=== PATIENT | female | born 1970 | race Caucasian/White ===

== ENCOUNTER 2017-11-05 10:51 | Inpatient (IN) | payer OTHER ==
[2017-11-05 11:40] VITALS: BMI 27.3
--- NOTE | 2017-11-05 14:29 | HP ---
COWS - Scale Resting Pulse: 2= [place] 101-120 Sweatin=Flushed/Facial Moisture Restless Observation: 3= Extraneous Movement Pupil Size: 2= Moderately Dilated Bone or Joint Aches: 2= Severe Diffuse Aches Runny Nose/ Eye Tearin= Runny Nose/Eyes GI Upset > 30mins: 3= Vomiting/Diarrhea Tremor Observation: 2= Slight Tremor Visible Yawning Observation: 2= >3x During Session Anxiety or Irritability: 2=Irritable/Anxious Goose Flesh Skin: 0=Smooth Skin COWS Score: 22 CIWA Score - CIWA Score Nausea/Vomitin Muscle Tremors: 3 Anxiety: 3 Agitation: 3 Paroxysmal Sweats: 2 Orientation: 0-Oriented Tacttile Disturbances: 2-Mild Itch/Numbness/Burn Auditory Disturbances: 2-Mild Harshness/Frighten Visual Disturbances: 1-Very Mild Sensitivity Headache: 3-Moderate CIWA-Ar Total Score: 22 Admission ROS BHS - HPI Chief Complaint: I NEED HELP TO STOP USING HEROIN,ALCOHOL,KLONOPIN Allergies/Adverse Reactions: Allergies Allergy/AdvReac Type Severity Reaction Status Date / Time No Known Allergies Allergy Verified 11/05/17 14:33 History of Present Illness: THIS 47 YEARS OLD FEMALE WITH HEROIN,ALCOHOL,KLONOPIN DEPENDENCE,WITHDRAWAL SYMPTOM,SEEKING DETOX,LAST TREATMENT IN 2011 [place] [facility]PAT[facility],FOLLOW BY PMD WEIGHT LOSS ANXIETY,DEPRESSION,INSOMNIA,PTSD LOW BACK PAIN NICOTINE DEPENDENCE LONGEST PERIOD OF SOBRIETY 3 AND A HALF YEARS STATED USE TO BE ON SUBOXONE 8MG/2MGS SL FILM BID BUT HAS NOT BEEN TAKING FOR 3 WEEKS - Ebola screening Have you traveled outside of the country in the last 21 days: No (N) Have you had contact with anyone from an Ebola affected area: No Have you been sick,other than usual withdrawal symptoms: No Do you have a fever: No - Review of Systems Constitutional: Chills, Loss of Appetite, Malaise, Night Sweats, Changes in sleep, Weakness, Unintentional Wgt. Loss EENT: reports: Tearing, Hearing Loss (HEARING LOSS RIGHT DUE TO TRAUMA), Nose Congestion, Other Respiratory: reports: No Symptoms reported, Other (ASTHMA) Cardiac: reports: Palpitations GI: reports: Diarrhea, Nausea, Vomiting, Abdominal cramping : reports: No Symptoms Reported Musculoskeletal: reports: Back Pain, Joint Pain, Muscle Pain, Joint Stiffness Integumentary: reports: Dryness Neuro: reports: Headache, Tremors Endocrine: reports: No Symptoms Reported Hematology: reports: No Symptoms Reported Psychiatric: reports: No Sypmtoms Reported, Judgement Intact, Mood/Affect Appropiate, Orientated x3, Anxious, Depressed Other Systems: Reviewed and Negative Patient History - Patient Medical History Hx Anemia: No Hx Asthma: No Hx Chronic Obstructive Pulmonary Disease (COPD): No Hx Cancer: No Hx Cardiac Disorders: No Hx Congestive Heart Failure: No Hx Hypertension: No Hx Hypercholesterolemia: No Hx Pacemaker: No HX Cerebrovascular Accident: No Hx Seizures: No Hx Dementia: No Hx Diabetes: No Hx Gastrointestinal Disorders: No Hx Liver Disease: No Hx Genitourinary Disorders: No Hx Sexually Transmitted Disorders: No Hx Renal Disease (ESRD): No Hx Thyroid Disease: No Hx Human Immunodeficiency Virus (HIV): No (LAST 2016 NEGATIVE) Hx Hepatitis C: Yes (BEING FOLLOW WITH PMD) Hx Depression: Yes (INSOMNIA,DEPRESSION) Hx Suicide Attempt: No Hx Bipolar Disorder: No Hx Schizophrenia: No Other Medical History: NO SUICIDAL,NO HOMICIDAL,LOW BACK PAIN,DEMINISH HEARING RIGHT - Patient Surgical History Past Surgical History: Yes Hx Orthopedic Surgery: Yes (DRAINAGE OF ABSCESS OF LEFT UPPER ARM IN 2017) - PPD History Previous Implant?: Yes Documented Results: Positive w/o proof PPD to be Administered?: No - Reproductive History Patient is a Female of Child Bearing Age (11 -55 yrs old): Yes Patient : No - Smoking Cessation Smoking history: Current every day smoker Have you smoked in the past 12 months: Yes Aproximately how many cigarettes per day: 10 Hx Chewing Tobacco Use: No Initiated information on smoking cessation: Yes 'Breaking Loose' booklet given: 11/05/17 - Substance & Tx. History Hx Alcohol Use: Yes Hx Substance Use: Yes Substance Use Type: Alcohol, Cocaine, Heroin, Tranquilizers Hx Substance Use Treatment: Yes (IN 2011 ) - Substances Abused ETOH Route: Oral Frequency: 3-6 times per week Amount used: 1 PINT VODKA Age of first use: 14 Date of Last Use: 11/04/17 KLONOPIN Route: Oral Frequency: Daily Amount used: 2MG Age of first use: 38 Date of Last Use: 11/05/17 Heroin Route: Injection Frequency: Daily Amount used: 10BAGS Age of first use: 17 Date of Last Use: 11/05/17 Family Disease History - Family Disease History Family History: Denies Family Disease History: Other: Brother (ALCOHOL) Admission Physical Exam [facility] - Vital Signs Vital Signs: Vital Signs - 24 hr 11/05/17 11:37 Temperature 96.6 F L Pulse Rate 115 H Respiratory 18 Rate Blood Pressure 130/83 - Physical General Appearance: Yes: Moderate Distress, Tremorous, Irritable, Sweating, Anxious HEENTM: Yes: Normal ENT Inspection, JORGE LUIS, Pharynx Normal Respiratory: Yes: Lungs Clear, Normal Breath Sounds, No Respiratory Distress Neck: Yes: Within Normal Limits, Supple, Trachea in good position Breast: Yes: Breast Exam Deferred Cardiology: Yes: Within Normal Limits, Tachycardia Abdominal: Yes: Within Normal Limits, Normal Bowel Sounds, Non Tender, Flat, Soft Genitourinary: Yes: Within Normal Limits Back: Yes: Muscle Spasm Musculoskeletal: Yes: Back pain, Joint Stiffness, Muscle Pain Extremities: Yes: Within Normal Limits, Normal Range of Motion, Tremors Neurological: Yes: management supervisor II-XII NML intact, Alert, Motor Strength 5/5 Integumentary: Yes: Dry, Track [place] Lymphatic: Yes: Within Normal Limits - Diagnostic (1) Opioid dependence with withdrawal Current Visit: Yes Status: Acute (2) Alcohol dependence with uncomplicated withdrawal Current Visit: Yes Status: Acute (3) Weight loss Current Visit: Yes Status: Acute (4) Depression Current Visit: Yes Status: Acute (5) Nicotine dependence Current Visit: Yes Status: Acute (6) Bipolar 1 disorder Current Visit: Yes Status: Acute (7) Hearing loss, right Current Visit: Yes Status: Acute (8) 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
[2017-11-05] MEDS ORDERED: MENTHOL/PHENOL 1 EACH UD MM PRN (15:01)
[2017-11-05] MEDS ORDERED: LOPERAMIDE HCL 2 MG CAPSULE PO PRN (15:01)
[2017-11-05] MEDS ORDERED: MAG HYDROX/AL HYDROX/SIMETH 30 ML UNIT-DOSE CUP PO PRN (15:01)
[2017-11-05] MEDS ORDERED: IBUPROFEN 400 MG TABLET (FP) PO PRN (15:01)
[2017-11-05] MEDS ORDERED: MAGNESIUM HYDROX 2400MG/30ML ORAL SUSPENSION 30 ML CUP PO PRN (15:01)
[2017-11-05] MEDS ORDERED: hydrOXYzine PAMOATE 50 MG CAPSULE (FP) PO PRN (15:01)
[2017-11-05] MEDS ORDERED: guaiFENesin/D-METHORPHAN HB 10 ML UNIT-DOSE CUPS PO PRN (15:01)
[2017-11-05] MEDS ORDERED: NICOTINE POLACRILEX 2 MG GUM BUC PRN (15:01)
[2017-11-05] MEDS ORDERED: ACETAMINOPHEN 325 MG TABLET (FP) PO PRN (15:01)
[2017-11-05] MEDS ORDERED: MAGNESIUM CITRATE 300 ML BOTTLE PO PRN (15:01)
[2017-11-05] MEDS ORDERED: P-EPHED 60MG/TRIPROLIDI 2.5MG TABLET PO PRN (15:01)
[2017-11-05] MEDS ORDERED: ALBUTEROL SO4 18 GM HFA INHALER IH PRN (15:06)
[2017-11-05] MEDS ORDERED: diazePAM 5 MG TABLET PO ONE (16:30)
[2017-11-05] MEDS ORDERED: METHADONE HCL 10 MG TABLET (FOR DETOX USE ONLY) PO ONE ×2 (16:30→23:00)
[2017-11-05] MEDS: NICOTINE 21 MG/24 HOURS TOPICAL PATCH TD SCH (18:03)
[2017-11-05] MEDS ORDERED: CYCLOBENZAPRINE HCL 10 MG TABLET (FP) PO SCH (22:00)
[2017-11-05] MEDS: GABAPENTIN 300 MG CAPSULE (FP) PO SCH (22:34)
[2017-11-05] MEDS: diazePAM 5 MG TABLET PO SCH (22:34)
[2017-11-05] MEDS: THIAMINE HCL 100 MG TABLET (FP) PO SCH (22:34)
[2017-11-05 22:48] LABS: URINE APPEARANCE TURBID; URINE BILIRUBIN NEGATIVE (NEGATIVE); URINE BLOOD NEGATIVE (NEGATIVE); URINE COLOR YELLOW; URINE GLUCOSE (UA) NEGATIVE (NEGATIVE); URINE KETONE NEGATIVE (NEGATIVE); URINE LEUK ESTERASE NEGATIVE (NEGATIVE); URINE NITRITE NEGATIVE (NEGATIVE); URINE UROBILINOGEN 4.0 E.U/dl mg/dL (0.2-1.0)
[2017-11-05 22:52] LABS: URINE PROTEIN 1+ (NEGATIVE)
[2017-11-05 22:56] LABS: EPI CELLS MODERATE /HPF (FEW); URINE BACTERIA MODERATE /hpf (NONE SEEN); URINE MUCUS FEW
[2017-11-05] MEDS: CYCLOBENZAPRINE HCL 10 MG TABLET (FP) PO SCH (23:27)
[2017-11-06] MEDS: diazePAM 5 MG TABLET PO SCH ×3 (06:15→22:17)
[2017-11-06] MEDS: CYCLOBENZAPRINE HCL 10 MG TABLET (FP) PO SCH ×3 (06:15→22:17)
[2017-11-06] MEDS ORDERED: METHADONE HCL 10 MG TABLET (FOR DETOX USE ONLY) PO SCH (10:00)
[2017-11-06 10:12] LABS: HEMATOCRIT 38.9 % (32.4-45.2); MCH 29.4 pg (25.7-33.7); MCHC 33.4 g/dl (32.0-36.0); MEAN PLT VOLUME 9.8 fl (7.5-11.1); PLATELET COUNT 210 K/MM3 (134-434); RBC 4.42 M/mm3 (3.60-5.2); RDW 13.7 % (11.6-15.6); WHITE BLOOD COUNT 5.2 K/mm3 (4.0-10.0)
--- NOTE | 2017-11-06 10:13 | PN ---
[facility] CIWA - CIWA Score Nausea/Vomitin-Mild Nausea/No Vomiting Muscle Tremors: 4-Moderate,w/Arms Extend Anxiety: 4-Mod. Anxious/Guarded Agitation: 4-Moderately Restless Paroxysmal Sweats: 1-Minimal Palms Moist Orientation: 0-Oriented Tacttile Disturbances: 2-Mild Itch/Numbness/Burn Auditory Disturbances: 0-None Visual Disturbances: 0-None Headache: 2-Mild CIWA-Ar Total Score: 18 [facility] COWS - Scale Resting Pulse: 1= [place] 81-100 Sweatin= Chills/Flushing Restless Observation: 3= Extraneous Movement Pupil Size: 1= Pupils >than Normal Bone or Joint Aches: 2= Severe Diffuse Aches Runny Nose/ Eye Tearin= Runny Nose/Eyes GI Upset > 30mins: 2= Nausea/Diarrhea Tremor Observation of Outstretched Hands: 2= Slight Tremor Visible Yawning Observation: 2= >3x During Session Anxiety or Irritability: 2=Irritable/Anxious Goose Flesh Skin: 0=Smooth Skin COWS Score: 18 [facility] Progress Note (SOAP) Subjective: joint aches sweat tremor restlessness irritable headache gi upset Objective: 11/06/17 10:14 Vital Signs Temperature 97.2 F L 11/06/17 06:00 Pulse Rate 83 11/06/17 06:00 Respiratory Rate 18 11/06/17 06:00 Blood Pressure 121/73 11/06/17 06:00 O2 Sat by Pulse Oximetry (%) Laboratory Last Values Urine Color Yellow 11/05/17 22:40 Urine Appearance Turbid 11/05/17 22:40 Urine pH 5.0 (5.0-8.0) 11/05/17 22:40 Ur Specific [place] 1.029 (1.001-1.035) 11/05/17 22:40 Urine Protein 1+ (NEGATIVE) H 11/05/17 22:40 Urine Glucose (UA) Negative (NEGATIVE) 11/05/17 22:40 Urine Ketones Negative (NEGATIVE) 11/05/17 22:40 Urine Blood Negative (NEGATIVE) 11/05/17 22:40 Urine Nitrite Negative (NEGATIVE) 11/05/17 22:40 Urine Bilirubin Negative (NEGATIVE) 11/05/17 22:40 Urine Urobilinogen 4.0 e.u/dl mg/dL (0.2-1.0) H 11/05/17 22:40 Ur Leukocyte Esterase Negative (NEGATIVE) 11/05/17 22:40 Urine WBC (Auto) 42 /hpf (3-5) 11/05/17 22:40 Urine RBC (Auto) 20 /hpf (0-3) 11/05/17 22:40 Ur Epithelial Cells Moderate /HPF (FEW) 11/05/17 22:40 Urine Bacteria Moderate /hpf (NONE SEEN) 11/05/17 22:40 Urine Mucus Few 11/05/17 22:40 lab noted 11/06/17 10:16 repeat ua Assessment: 11/06/17 10:16 withdrawal sx Plan: continue detox
[2017-11-06 10:31] LABS: ALBUMIN 3.1 g/dl (3.4-5.0); ANION GAP 10 (8-16); BLOOD UREA NITROGEN 9 mg/dL (7-18); CALCIUM 8.6 mg/dL (8.5-10.1); CHLORIDE 103 mmol/L (98-107); CO2 27 mmol/L (21-32); GLUCOSE,RANDOM 86 mg/dL (74-106); POTASSIUM 3.4 mmol/L (3.5-5.1); SODIUM 140 mmol/L (136-145)
[2017-11-06 10:36] LABS: ALK PHOS 49 U/L (45-117); BILIRUBIN,TOTAL 0.5 mg/dL (0.2-1.0); CREATININE 0.6 mg/dL (0.55-1.02); SGOT/AST 26 U/L (15-37); SGPT/ALT 31 U/L (12-78)
--- NOTE | 2017-11-06 10:49 | EKG ---
Test Reason : Blood Pressure : / mmHG Vent. Rate : 106 BPM Atrial Rate : 106 BPM P-R Int : 132 ms QRS Dur : 084 ms QT Int : 334 ms P-R-T Axes : 062 063 062 degrees QTc Int : 443 ms SINUS TACHYCARDIA MINIMAL VOLTAGE CRITERIA FOR LVH, MAY BE NORMAL VARIANT BORDERLINE ECG NO PREVIOUS ECGS AVAILABLE Confirmed by DANIEL IRVIN MD ([id number]) on 11/06/2017 10:49:29 AM Referred By: Confirmed By:DANIEL IRVIN MD
[2017-11-06] MEDS: PRENATAL VITAMINS W/ FOLIC ACID TABLET (FP) PO SCH (11:06)
[2017-11-06] MEDS: GABAPENTIN 300 MG CAPSULE (FP) PO SCH ×2 (11:06→22:17)
[2017-11-06] MEDS: diazePAM 5 MG TABLET PO PRN ×2 (11:07→18:30)
[2017-11-06] MEDS: NICOTINE 21 MG/24 HOURS TOPICAL PATCH TD SCH (11:30)
[2017-11-06] MEDS: PNEUMOC 13-VAL CONJ-DIP CRM/PF 0.5 ML DISP.SYRIN IM ONE ×2 (13:25→13:46)
[2017-11-06] MEDS ORDERED: PNEUMOCOCCAL 23 VACCINE 0.5 ML VIAL IM ONE (14:15)
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
[2017-11-06] MEDS: THIAMINE HCL 100 MG TABLET (FP) PO SCH (22:17)
[2017-11-06] MEDS: QUEtiapine FUMARATE 100 MG TABLET (FP) PO SCH (22:17)
[2017-11-07] MEDS: diazePAM 5 MG TABLET PO PRN ×4 (02:16→19:02)
[2017-11-07] MEDS: CYCLOBENZAPRINE HCL 10 MG TABLET (FP) PO SCH ×3 (06:03→22:45)
--- NOTE | 2017-11-07 09:17 | PN ---
[facility] CIWA - CIWA Score Nausea/Vomitin-Mild Nausea/No Vomiting Muscle Tremors: 4-Moderate,w/Arms Extend Anxiety: 4-Mod. Anxious/Guarded Agitation: 4-Moderately Restless Paroxysmal Sweats: 1-Minimal Palms Moist Orientation: 0-Oriented Tacttile Disturbances: 1-Very Mild Itch/Numbness Auditory Disturbances: 0-None Visual Disturbances: 0-None Headache: 0-None Present CIWA-Ar Total Score: 15 S COWS - Scale Resting Pulse: 0= SC 80 or Below Sweatin= Chills/Flushing Restless Observation: 3= Extraneous Movement Pupil Size: 0= Normal to Room Light Bone or Joint Aches: 2= Severe Diffuse Aches Runny Nose/ Eye Tearin= Runny Nose/Eyes GI Upset > 30mins: 2= Nausea/Diarrhea Tremor Observation of Outstretched Hands: 2= Slight Tremor Visible Yawning Observation: 2= >3x During Session Anxiety or Irritability: 2=Irritable/Anxious Goose Flesh Skin: 0=Smooth Skin COWS Score: 16 [facility] Progress Note (SOAP) Subjective: general body ache sweat tremor anxiety restlessness irritable sleeplessness Objective: 11/07/17 09:16 Vital Signs Temperature 96.3 F L 11/07/17 06:00 Pulse Rate 77 11/07/17 06:00 Respiratory Rate 18 11/07/17 06:00 Blood Pressure 113/65 11/07/17 06:00 O2 Sat by Pulse Oximetry (%) Laboratory Last Values WBC 5.2 K/mm3 (4.0-10.0) 11/06/17 07:00 RBC 4.42 M/mm3 (3.60-5.2) 11/06/17 07:00 Hgb 13.0 GM/dL (10.7-15.3) 11/06/17 07:00 Hct 38.9 % (32.4-45.2) 11/06/17 07:00 MCV 88.0 fl (80-96) 11/06/17 07:00 MCH 29.4 pg (25.7-33.7) 11/06/17 07:00 MCHC 33.4 g/dl (32.0-36.0) 11/06/17 07:00 RDW 13.7 % (11.6-15.6) 11/06/17 07:00 Plt Count 210 K/MM3 (134-434) 11/06/17 07:00 MPV 9.8 fl (7.5-11.1) 11/06/17 07:00 Sodium 140 mmol/L (136-145) 11/06/17 07:00 Potassium 3.4 mmol/L (3.5-5.1) L 11/06/17 07:00 Chloride 103 mmol/L (98-107) 11/06/17 07:00 Carbon Dioxide 27 mmol/L (21-32) 11/06/17 07:00 Anion Gap 10 (8-16) 11/06/17 07:00 BUN 9 mg/dL (7-18) 11/06/17 07:00 Creatinine 0.6 mg/dL (0.55-1.02) 11/06/17 07:00 Creat Clearance w eGFR > 60 (>60) 11/06/17 07:00 Random Glucose 86 mg/dL (74-106) 11/06/17 07:00 Calcium 8.6 mg/dL (8.5-10.1) 11/06/17 07:00 Total Bilirubin 0.5 mg/dL (0.2-1.0) 11/06/17 07:00 AST 26 U/L (15-37) 11/06/17 07:00 ALT 31 U/L (12-78) 11/06/17 07:00 Alkaline Phosphatase 49 U/L (45-117) 11/06/17 07:00 Total Protein 7.0 g/dl (6.4-8.2) 11/06/17 07:00 Albumin 3.1 g/dl (3.4-5.0) L 11/06/17 07:00 Urine Color Yellow 11/05/17 22:40 Urine Appearance Turbid 11/05/17 22:40 Urine pH 5.0 (5.0-8.0) 11/05/17 22:40 Ur Specific [place] 1.029 (1.001-1.035) 11/05/17 22:40 Urine Protein 1+ (NEGATIVE) H 11/05/17 22:40 Urine Glucose (UA) Negative (NEGATIVE) 11/05/17 22:40 Urine Ketones Negative (NEGATIVE) 11/05/17 22:40 Urine Blood Negative (NEGATIVE) 11/05/17 22:40 Urine Nitrite Negative (NEGATIVE) 11/05/17 22:40 Urine Bilirubin Negative (NEGATIVE) 11/05/17 22:40 Urine Urobilinogen 4.0 e.u/dl mg/dL (0.2-1.0) H 11/05/17 22:40 Ur Leukocyte Esterase Negative (NEGATIVE) 11/05/17 22:40 Urine WBC (Auto) 42 /hpf (3-5) 11/05/17 22:40 Urine RBC (Auto) 20 /hpf (0-3) 11/05/17 22:40 Ur Epithelial Cells Moderate /HPF (FEW) 11/05/17 22:40 Urine Bacteria Moderate /hpf (NONE SEEN) 11/05/17 22:40 Urine Mucus Few 11/05/17 22:40 RPR Titer Nonreactive (NONREACTIVE) 11/06/17 07:00 HIV 1&2 Antibody Screen Negative 11/06/17 07:00 HIV P24 Antigen Negative 11/06/17 07:00 lab noted potassium supplement x 4 doses 11/07/17 09:18 Assessment: 11/07/17 09:19 withdrawal sx Plan: continue detox
[2017-11-07] MEDS: METHADONE HCL 5 MG TABLET (FOR DETOX USE ONLY) PO SCH (10:42)
[2017-11-07] MEDS: PRENATAL VITAMINS W/ FOLIC ACID TABLET (FP) PO SCH (10:42)
[2017-11-07] MEDS: PARoxetine HCL 20 MG TABLET (FP) PO SCH (10:42)
[2017-11-07] MEDS: GABAPENTIN 300 MG CAPSULE (FP) PO SCH ×2 (10:42→22:46)
[2017-11-07] MEDS: ARIPiprazole 15 MG TABLET PO SCH (10:42)
[2017-11-07] MEDS: diazePAM 5 MG TABLET PO SCH ×2 (10:42→22:45)
[2017-11-07] MEDS: NICOTINE 21 MG/24 HOURS TOPICAL PATCH TD SCH (10:43)
[2017-11-07] MEDS: POTASSIUM CHLORIDE ORAL LIQUID 20 MEQ/15 ML PO SCH ×2 (10:43→22:45)
[2017-11-07] MEDS: THIAMINE HCL 100 MG TABLET (FP) PO SCH (22:46)
[2017-11-07] MEDS: QUEtiapine FUMARATE 100 MG TABLET (FP) PO SCH (22:46)
[2017-11-08] MEDS: CYCLOBENZAPRINE HCL 10 MG TABLET (FP) PO SCH ×3 (07:05→22:11)
[2017-11-08] MEDS: diazePAM 5 MG TABLET PO PRN ×2 (07:06→13:38)
--- NOTE | 2017-11-08 10:11 | PN ---
[facility] Progress Note (SOAP) Subjective: general body aches sweat tremor restlessness anxiety irritable Objective: 11/08/17 10:11 Vital Signs Temperature 96.7 F L 11/08/17 06:35 Pulse Rate 82 11/08/17 06:35 Respiratory Rate 18 11/08/17 06:35 Blood Pressure 118/67 11/08/17 06:35 O2 Sat by Pulse Oximetry (%) Laboratory Last Values WBC 5.2 K/mm3 (4.0-10.0) 11/06/17 07:00 RBC 4.42 M/mm3 (3.60-5.2) 11/06/17 07:00 Hgb 13.0 GM/dL (10.7-15.3) 11/06/17 07:00 Hct 38.9 % (32.4-45.2) 11/06/17 07:00 MCV 88.0 fl (80-96) 11/06/17 07:00 MCH 29.4 pg (25.7-33.7) 11/06/17 07:00 MCHC 33.4 g/dl (32.0-36.0) 11/06/17 07:00 RDW 13.7 % (11.6-15.6) 11/06/17 07:00 Plt Count 210 K/MM3 (134-434) 11/06/17 07:00 MPV 9.8 fl (7.5-11.1) 11/06/17 07:00 Sodium 140 mmol/L (136-145) 11/06/17 07:00 Potassium 3.4 mmol/L (3.5-5.1) L 11/06/17 07:00 Chloride 103 mmol/L (98-107) 11/06/17 07:00 Carbon Dioxide 27 mmol/L (21-32) 11/06/17 07:00 Anion Gap 10 (8-16) 11/06/17 07:00 BUN 9 mg/dL (7-18) 11/06/17 07:00 Creatinine 0.6 mg/dL (0.55-1.02) 11/06/17 07:00 Creat Clearance w eGFR > 60 (>60) 11/06/17 07:00 Random Glucose 86 mg/dL (74-106) 11/06/17 07:00 Calcium 8.6 mg/dL (8.5-10.1) 11/06/17 07:00 Total Bilirubin 0.5 mg/dL (0.2-1.0) 11/06/17 07:00 AST 26 U/L (15-37) 11/06/17 07:00 ALT 31 U/L (12-78) 11/06/17 07:00 Alkaline Phosphatase 49 U/L (45-117) 11/06/17 07:00 Total Protein 7.0 g/dl (6.4-8.2) 11/06/17 07:00 Albumin 3.1 g/dl (3.4-5.0) L 11/06/17 07:00 Urine Color Yellow 11/05/17 22:40 Urine Appearance Turbid 11/05/17 22:40 Urine pH 5.0 (5.0-8.0) 11/05/17 22:40 Ur Specific [place] 1.029 (1.001-1.035) 11/05/17 22:40 Urine Protein 1+ (NEGATIVE) H 11/05/17 22:40 Urine Glucose (UA) Negative (NEGATIVE) 11/05/17 22:40 Urine Ketones Negative (NEGATIVE) 11/05/17 22:40 Urine Blood Negative (NEGATIVE) 11/05/17 22:40 Urine Nitrite Negative (NEGATIVE) 11/05/17 22:40 Urine Bilirubin Negative (NEGATIVE) 11/05/17 22:40 Urine Urobilinogen 4.0 e.u/dl mg/dL (0.2-1.0) H 11/05/17 22:40 Ur Leukocyte Esterase Negative (NEGATIVE) 11/05/17 22:40 Urine WBC (Auto) 42 /hpf (3-5) 11/05/17 22:40 Urine RBC (Auto) 20 /hpf (0-3) 11/05/17 22:40 Ur Epithelial Cells Moderate /HPF (FEW) 11/05/17 22:40 Urine Bacteria Moderate /hpf (NONE SEEN) 11/05/17 22:40 Urine Mucus Few 11/05/17 22:40 RPR Titer Nonreactive (NONREACTIVE) 11/06/17 07:00 HIV 1&2 Antibody Screen Negative 11/06/17 07:00 HIV P24 Antigen Negative 11/06/17 07:00 lab noted repeat ua Assessment: 11/08/17 10:14 withdrawal sx Plan: continue detox
[2017-11-08] MEDS: POTASSIUM CHLORIDE ORAL LIQUID 20 MEQ/15 ML PO SCH ×2 (10:31→22:10)
[2017-11-08] MEDS: PARoxetine HCL 20 MG TABLET (FP) PO SCH (10:31)
[2017-11-08] MEDS: diazePAM 5 MG TABLET PO SCH ×2 (10:31→22:11)
[2017-11-08] MEDS: GABAPENTIN 300 MG CAPSULE (FP) PO SCH ×2 (10:31→22:11)
[2017-11-08] MEDS: ARIPiprazole 15 MG TABLET PO SCH (10:31)
[2017-11-08] MEDS: METHADONE HCL 5 MG TABLET (FOR DETOX USE ONLY) PO SCH (10:31)
[2017-11-08] MEDS: PRENATAL VITAMINS W/ FOLIC ACID TABLET (FP) PO SCH (10:32)
[2017-11-08] MEDS: NICOTINE 21 MG/24 HOURS TOPICAL PATCH TD SCH (10:32)
[2017-11-08] MEDS: THIAMINE HCL 100 MG TABLET (FP) PO SCH (22:10)
[2017-11-08] MEDS: QUEtiapine FUMARATE 100 MG TABLET (FP) PO SCH (22:10)
[2017-11-08 22:58] LABS: URINE APPEARANCE CLEAR; URINE BILIRUBIN NEGATIVE (NEGATIVE); URINE BLOOD NEGATIVE (NEGATIVE); URINE COLOR LTYELLOW; URINE GLUCOSE (UA) NEGATIVE (NEGATIVE); URINE KETONE NEGATIVE (NEGATIVE); URINE LEUK ESTERASE NEGATIVE (NEGATIVE); URINE NITRITE NEGATIVE (NEGATIVE); URINE PROTEIN NEGATIVE (NEGATIVE); URINE UROBILINOGEN NEGATIVE mg/dL (0.2-1.0)
[2017-11-08 22:59] LABS: URINE APPEARANCE CLEAR; URINE BILIRUBIN NEGATIVE (NEGATIVE); URINE BLOOD NEGATIVE (NEGATIVE); URINE COLOR LTYELLOW; URINE GLUCOSE (UA) NEGATIVE (NEGATIVE); URINE KETONE NEGATIVE (NEGATIVE); URINE LEUK ESTERASE TRACE (NEGATIVE); URINE NITRITE NEGATIVE (NEGATIVE); URINE PROTEIN NEGATIVE (NEGATIVE); URINE UROBILINOGEN NEGATIVE mg/dL (0.2-1.0)
[2017-11-08 23:08] LABS: URINE MUCUS RARE
[2017-11-09] MEDS: CYCLOBENZAPRINE HCL 10 MG TABLET (FP) PO SCH ×3 (06:06→22:22)
--- NOTE | 2017-11-09 09:31 | PN ---
S Progress Note (SOAP) Subjective: alert oriented x 3 tolerates food and fluid well no tremor less sweat Objective: 11/09/17 09:30 Vital Signs Temperature 97.1 F L 11/09/17 06:33 Pulse Rate 80 11/09/17 06:33 Respiratory Rate 18 11/09/17 06:33 Blood Pressure 137/71 11/09/17 06:33 O2 Sat by Pulse Oximetry (%) Laboratory Last Values WBC 5.2 K/mm3 (4.0-10.0) 11/06/17 07:00 RBC 4.42 M/mm3 (3.60-5.2) 11/06/17 07:00 Hgb 13.0 GM/dL (10.7-15.3) 11/06/17 07:00 Hct 38.9 % (32.4-45.2) 11/06/17 07:00 MCV 88.0 fl (80-96) 11/06/17 07:00 MCH 29.4 pg (25.7-33.7) 11/06/17 07:00 MCHC 33.4 g/dl (32.0-36.0) 11/06/17 07:00 RDW 13.7 % (11.6-15.6) 11/06/17 07:00 Plt Count 210 K/MM3 (134-434) 11/06/17 07:00 MPV 9.8 fl (7.5-11.1) 11/06/17 07:00 Sodium 140 mmol/L (136-145) 11/06/17 07:00 Potassium 3.4 mmol/L (3.5-5.1) L 11/06/17 07:00 Chloride 103 mmol/L (98-107) 11/06/17 07:00 Carbon Dioxide 27 mmol/L (21-32) 11/06/17 07:00 Anion Gap 10 (8-16) 11/06/17 07:00 BUN 9 mg/dL (7-18) 11/06/17 07:00 Creatinine 0.6 mg/dL (0.55-1.02) 11/06/17 07:00 Creat Clearance w eGFR > 60 (>60) 11/06/17 07:00 Random Glucose 86 mg/dL (74-106) 11/06/17 07:00 Calcium 8.6 mg/dL (8.5-10.1) 11/06/17 07:00 Total Bilirubin 0.5 mg/dL (0.2-1.0) 11/06/17 07:00 AST 26 U/L (15-37) 11/06/17 07:00 ALT 31 U/L (12-78) 11/06/17 07:00 Alkaline Phosphatase 49 U/L (45-117) 11/06/17 07:00 Total Protein 7.0 g/dl (6.4-8.2) 11/06/17 07:00 Albumin 3.1 g/dl (3.4-5.0) L 11/06/17 07:00 Urine Color Ltyellow 11/08/17 19:45 Urine Appearance Clear 11/08/17 19:45 Urine pH 8.0 (5.0-8.0) D 11/08/17 19:45 Ur Specific [place] 1.013 (1.001-1.035) 11/08/17 19:45 Urine Protein Negative (NEGATIVE) 11/08/17 19:45 Urine Glucose (UA) Negative (NEGATIVE) 11/08/17 19:45 Urine Ketones Negative (NEGATIVE) 11/08/17 19:45 Urine Blood Negative (NEGATIVE) 11/08/17 19:45 Urine Nitrite Negative (NEGATIVE) 11/08/17 19:45 Urine Bilirubin Negative (NEGATIVE) 11/08/17 19:45 Urine Urobilinogen Negative mg/dL (0.2-1.0) 11/08/17 19:45 Ur Leukocyte Esterase Trace (NEGATIVE) 11/08/17 19:45 Urine WBC (Auto) <1 /hpf (3-5) 11/08/17 19:45 Urine RBC (Auto) None /hpf (0-3) 11/08/17 19:45 Ur Epithelial Cells Moderate /HPF (FEW) 11/05/17 22:40 Urine Bacteria Moderate /hpf (NONE SEEN) 11/05/17 22:40 Urine Mucus Rare 11/08/17 19:45 RPR Titer Nonreactive (NONREACTIVE) 11/06/17 07:00 HIV 1&2 Antibody Screen Negative 11/06/17 07:00 HIV P24 Antigen Negative 11/06/17 07:00 lab noted Assessment: 11/09/17 09:31 mild withdrawal sx Plan: medically supervised detox
[2017-11-09] MEDS ORDERED: diazePAM 5 MG TABLET PO SCH (10:00)
[2017-11-09] MEDS ORDERED: METHADONE HCL 10 MG TABLET (FOR DETOX USE ONLY) PO SCH (10:00)
[2017-11-09] MEDS: GABAPENTIN 300 MG CAPSULE (FP) PO SCH ×2 (10:08→22:22)
[2017-11-09] MEDS: PARoxetine HCL 20 MG TABLET (FP) PO SCH (10:08)
[2017-11-09] MEDS: ARIPiprazole 15 MG TABLET PO SCH (10:08)
[2017-11-09] MEDS: PRENATAL VITAMINS W/ FOLIC ACID TABLET (FP) PO SCH (10:09)
[2017-11-09] MEDS: NICOTINE 21 MG/24 HOURS TOPICAL PATCH TD SCH (10:09)
[2017-11-09] MEDS: THIAMINE HCL 100 MG TABLET (FP) PO SCH (22:22)
[2017-11-09] MEDS: QUEtiapine FUMARATE 100 MG TABLET (FP) PO SCH (22:22)
[2017-11-10] MEDS ORDERED: METHADONE HCL 5 MG TABLET (FOR DETOX USE ONLY) PO SCH (06:00)
[2017-11-10] MEDS: CYCLOBENZAPRINE HCL 10 MG TABLET (FP) PO SCH (06:07)
[2017-11-10 06:40] VITALS: BP 114/77; PULSE 97; TEMP 97
--- NOTE | 2017-11-10 09:02 | DS ---
[facility] Detox Discharge Summary Admission Date: 11/05/17 Discharge Date: 11/10/17 - History Present History: Alcohol Dependence, Cocaine Dependence, Opioid Dependence, Sedative Dependence - Physical Exam Results Vital Signs: Vital Signs Temperature 97.0 F L 11/10/17 06:39 Pulse Rate 97 H 11/10/17 06:39 Respiratory Rate 16 11/10/17 06:39 Blood Pressure 114/77 11/10/17 06:39 O2 Sat by Pulse Oximetry (%) - Treatment Hospital Course: Detox Protocol Followed, Detoxed Safely, Responded well, Discharged Condition Good - Medication Discharge Medications: Ambulatory Orders Aripiprazole 15 mg PO DAILY 11/05/17 Paroxetine HCl [Paxil] 20 mg PO DAILY 11/05/17 Quetiapine Fumarate [Seroquel] 100 mg PO HS 11/05/17 Albuterol Sulfate Inhaler - [Ventolin HFA Inhaler -] 1 puff IH PRN PRN #1 inhaler 11/09/17 Gabapentin 300 mg PO BID #60 capsule 11/09/17 - Diagnosis (1) Alcohol dependence with uncomplicated withdrawal Current Visit: Yes Status: Chronic (2) Benzodiazepine dependence Current Visit: Yes Status: Chronic (3) Bipolar 1 disorder Current Visit: Yes Status: Chronic (4) Cocaine dependence Current Visit: Yes Status: Chronic Qualifiers: Substance use status: uncomplicated Qualified Code(s): F14.20 - Cocaine dependence, uncomplicated (5) Hearing loss, right Current Visit: Yes Status: Chronic Qualifiers: Hearing loss type: unspecified Qualified Code(s): H91.91 - Unspecified hearing loss, right ear (6) Nicotine dependence Current Visit: Yes Status: Chronic Qualifiers: Nicotine product type: cigarettes Substance use status: uncomplicated Qualified Code(s): F17.210 - Nicotine dependence, cigarettes, uncomplicated (7) Opioid dependence with withdrawal Current Visit: Yes Status: Chronic - AMA Did Patient Leave Against Medical Advice: No
[2017-11-10] MEDS: ARIPiprazole 15 MG TABLET PO SCH (09:11)
[2017-11-10] MEDS: GABAPENTIN 300 MG CAPSULE (FP) PO SCH (09:11)
[2017-11-10] MEDS: PARoxetine HCL 20 MG TABLET (FP) PO SCH (09:11)
== END 2017-11-10 09:12 | disposition home or self-care (01) | DRG 773 ==
LOC: YASAS 10:51 → Y6N 16:31
PROVIDERS: ADMIT Internal Medicine; ATTEND Internal Medicine
PROC: HZ2ZZZZ Detoxification Services for Substance Abuse Treatment (ICD-10-PCS; principal; 2017-11-05)
DX: F11.23 Opioid dependence with withdrawal (principal); F10.230 Alcohol dependence with withdrawal, uncomplicated; F13.230 Sedative, hypnotic or anxiolytic dependence with withdrawal, uncomplicated; F14.20 Cocaine dependence, uncomplicated; F17.210 Nicotine dependence, cigarettes, uncomplicated; F31.89 Other bipolar disorder; F32.9 Major depressive disorder, single episode, unspecified; H91.91 Unspecified hearing loss, right ear; G47.00 Insomnia, unspecified; B18.2 Chronic viral hepatitis C; R00.0 Tachycardia, unspecified; R76.11 Nonspecific reaction to tuberculin skin test without active tuberculosis; Z87.898 Personal history of other specified conditions
CPT/HCPCS: 36415; 71045-TC-FY; 80053; 81003; 81015; 85027; 86593; 87389; 90670; 90732; 93005; 93010; G0009

== ENCOUNTER 2017-12-14 11:41 | Inpatient (IN) | payer BC ==
[2017-12-14 14:01] VITALS: BMI 27.3
--- NOTE | 2017-12-14 14:25 | PN ---
[facility] Progress Note Note: Patient reports falling off premises after slipping on sneaker injuring back, with decreased flexion and tendernes over tors, unwitness fall. endorsed to ED physicin at [facility] for fall protocol [address] scan of head. GYPSY -, utox +ve for cocaine andheroin. vss 125/71, 109, afebv rr 20. patient may return for admission to inpait detox when medically sleared by AD. Occurrence reort copmleted.
--- NOTE | 2017-12-14 21:00 | HP ---
COWS - Scale Resting Pulse: 2= [place] 101-120 Sweatin=Flushed/Facial Moisture Restless Observation: 5= Unable to Sit Still Pupil Size: 1= Pupils >than Normal Bone or Joint Aches: 4=Acute Joint/Muscle Pain Runny Nose/ Eye Tearin= Runny Nose/Eyes GI Upset > 30mins: 0= None Tremor Observation: 2= Slight Tremor Visible Yawning Observation: 2= >3x During Session Anxiety or Irritability: 2=Irritable/Anxious Goose Flesh Skin: 0=Smooth Skin COWS Score: 22 CIWA Score - CIWA Score Nausea/Vomitin-No Nausea/No Vomiting Muscle Tremors: 4-Moderate,w/Arms Extend Anxiety: 4-Mod. Anxious/Guarded Agitation: 4-Moderately Restless Paroxysmal Sweats: No Perspiration Orientation: 2-Disoriented Date<2 days Tacttile Disturbances: 0-None Auditory Disturbances: 0-None Visual Disturbances: 0-None Headache: 0-None Present CIWA-Ar Total Score: 14 Admission ROS S - HPI Chief Complaint: C/O WITHDRAWAL SX'S. SEEKING DETOX FRO OPIOID AND ALCOHOL DEPENDENCE. Allergies/Adverse Reactions: Allergies Allergy/AdvReac Type Severity Reaction Status Date / Time No Known Allergies Allergy Verified 12/14/17 15:58 History of Present Illness: 47 Y.O. FEMALE WITH LONG HX/O OPIOID AND ALCHOLISM HERE FOR DETOX. CLIENT IS S/ P AN UNWITNESSED FALL EARLIER TODAY WHILE AMBULATING ON THE STREET. SHE NOW RETURN FROM [facility] AFTER BEING MEDICALLY EVALUATED FOR BACK PAIN AND CLEARED TO RETURN FOR DETOX. A HEAD CT WAS NOT PERFORMED PER DOCUMENTATION THE CLIENT DID NOT MEET CRITERIA. CLIENT DENIES ANY HEAD TRAUMA. STATES SHE FELL NO HER BQCK. DENIES LOC. C/O BACK PAIN 04/13. CLIENT IS SELF REFERRED. LAST HERE A MONTH AGO. REPORTS LONGEST CLEAN TIME 3.5 YEARS Exam Limitations: No Limitations - Ebola screening Have you traveled outside of the country in the last 21 days: No (N) Have you had contact with anyone from an Ebola affected area: No Have you been sick,other than usual withdrawal symptoms: No Do you have a fever: No - Review of Systems Constitutional: Chills, Loss of Appetite, Malaise, Night Sweats, Changes in sleep EENT: reports: Nose Congestion, Dental Problems, Other (RINORRHEA) Respiratory: reports: No Symptoms reported Cardiac: reports: No Symptoms Reported GI: reports: No Symptoms Reported : reports: No Symptoms Reported Musculoskeletal: reports: Back Pain, Joint Pain Integumentary: reports: No Symptoms Reported Neuro: reports: No Symptoms reported Endocrine: reports: No Symptoms Reported Hematology: reports: No Symptoms Reported Psychiatric: reports: Anxious, Depressed, other (PTSD, BIPOLAR) Other Systems: Reviewed and Negative Patient History - Patient Medical History Hx Anemia: No Hx Asthma: Yes (ALBUTEROL) Hx Chronic Obstructive Pulmonary Disease (COPD): Yes Hx Cancer: No Hx Cardiac Disorders: No Hx Congestive Heart Failure: No Hx Hypertension: No Hx Hypercholesterolemia: No Hx Pacemaker: No HX Cerebrovascular Accident: No Hx Seizures: No Hx Dementia: No Hx Diabetes: No Hx Gastrointestinal Disorders: No Hx Liver Disease: No Hx Genitourinary Disorders: No Hx Sexually Transmitted Disorders: No Hx Renal Disease (ESRD): No Hx Thyroid Disease: No Hx Human Immunodeficiency Virus (HIV): No Hx Hepatitis C: Yes (NO TXMENT) Hx Depression: Yes (INSOMNIA,DEPRESSION) Hx Suicide Attempt: No Hx Bipolar Disorder: Yes Hx Schizophrenia: No Other Medical History: ANXIETY, PTSD - Patient Surgical History Past Surgical History: Yes Hx Neurologic Surgery: No Hx Cataract Extraction: No Hx Cardiac Surgery: No Hx Lung Surgery: No Hx Breast Surgery: No Hx Breast Biopsy: No Hx Abdominal Surgery: No Hx Appendectomy: No Hx Cholecystectomy: No Hx Genitourinary Surgery: No Hx Section: No Hx Orthopedic Surgery: Yes (DRAINAGE OF ABSCESS OF LEFT UPPER ARM IN 2017) Anesthesia Reaction: No - PPD History Previous Implant?: Yes Documented Results: Positive w/proof Implanted On Prior R Admission?: No Results: CXR 11/06/2017 - PPD to be Administered?: No - Reproductive History Patient is a Female of Child Bearing Age (11 -55 yrs old): Yes Last Menstrual Period: 12/03/16 LMP comment: MEANPAUSE Patient : No ([facility]) - Smoking Cessation Smoking history: Current every day smoker Have you smoked in the past 12 months: Yes Aproximately how many cigarettes per day: 10 Cigars Per Day: 0 Hx Chewing Tobacco Use: No Initiated information on smoking cessation: Yes 'Breaking Loose' booklet given: 12/14/17 - Substance & Tx. History Hx Alcohol Use: Yes Hx Substance Use: Yes Substance Use Type: Alcohol, Cocaine, Heroin Hx Substance Use Treatment: Yes ([facility]) - Substances Abused VODKA Route: Oral Frequency: 3-6 times per week Amount used: 3 NIPS Age of first use: 14 Date of Last Use: 12/13/17 HEROIN Route: Injection Frequency: Daily Amount used: 10 BAGS Age of first use: 17 Date of Last Use: 12/13/17 RX KLONOPINS Route: Oral Frequency: Daily Amount used: 2 MG Age of first use: 38 Date of Last Use: 12/13/17 Family Disease History - Family Disease History Family Disease History: Heart Disease: Father (HTN), Mother Admission Physical Exam [facility] - Vital Signs Vital Signs: Vital Signs - 24 hr 12/14/17 14:00 Temperature 96.0 F L Pulse Rate 109 H Respiratory 20 Rate Blood Pressure 125/71 - Physical General Appearance: Yes: Appropriately Dressed, Mild Distress, Tremorous, Anxious HEENTM: Yes: EOMI, Normocephalic, Normal Voice, JORGE LUIS, Pharynx Normal, Nasal Congestion, Rhinorrhea, Other (MISSING TEETH) Respiratory: Yes: Chest Non-Tender, Lungs Clear, Normal Breath Sounds, No Respiratory Distress, No Accessory Muscle Use Neck: Yes: No masses,lesions,Nodules, Supple, Trachea in good position Breast: Yes: Breast Exam Deferred Cardiology: Yes: Regular Rhythm, S1, S2, Tachycardia Abdominal: Yes: Normal Bowel Sounds, Non Tender, Soft Genitourinary: Yes: Within Normal Limits Back: Yes: Normal Inspection, Decreased Range of Motion (DUE TO PAIN), Vertebral Tenderness Musculoskeletal: Yes: Gait Steady, Back pain, Joint Stiffness Extremities: Yes: Tremors Neurological: Yes: Alert, Motor Strength 5/5, Normal Response Integumentary: Yes: Normal Color, Warm, Track Holden (TO BUE) Lymphatic: Yes: Within Normal Limits - Diagnostic (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 Current Visit: Yes Status: Chronic (2) Alcohol dependence with uncomplicated withdrawal Current Visit: Yes Status: Chronic (3) Benzodiazepine dependence Current Visit: Yes Status: Chronic (4) Cocaine dependence Current Visit: Yes Status: Chronic Qualifiers: Substance use status: uncomplicated Qualified Code(s): F14.20 - Cocaine dependence, uncomplicated (5) Nicotine dependence Current Visit: Yes Status: Chronic Qualifiers: Nicotine product type: cigarettes Substance use status: uncomplicated Qualified Code(s): F17.210 - Nicotine dependence, cigarettes, uncomplicated (6) Opioid dependence with withdrawal Current Visit: Yes Status: Chronic (7) Asthma Current Visit: Yes Status: Chronic Qualifiers: Asthma severity: mild Asthma persistence: intermittent Asthma complication type: unspecified Qualified Code(s): J45.20 - Mild intermittent asthma, uncomplicated (8) Hepatitis C Current Visit: Yes Status: Chronic Qualifiers: Viral hepatitis chronicity: unspecified Cleared for Admission [facility] - Detox or Rehab [facility] Level of Care: Medically Managed Detox Regimen/Protocol: Methadone/Valium [facility] Breath Alcohol Content Breath Alcohol Content: 0 Urine Pregancy Test - Result Urine Test Results: Negative- NO Line Present Urine Drug Screen - Results Drug Screen Negative: No Urine Drug Screen Results: CHAU-Cocaine, OPI-Opiates
[2017-12-14] MEDS ORDERED: MENTHOL/PHENOL 1 EACH UD MM PRN (21:24)
[2017-12-14] MEDS ORDERED: MAGNESIUM HYDROX 2400MG/30ML ORAL SUSPENSION 30 ML CUP PO PRN (21:24)
[2017-12-14] MEDS ORDERED: METHADONE HCL 10 MG TABLET (FOR DETOX USE ONLY) PO ONE ×2 (21:24→23:00)
[2017-12-14] MEDS ORDERED: MAG HYDROX/AL HYDROX/SIMETH 30 ML UNIT-DOSE CUP PO PRN (21:24)
[2017-12-14] MEDS ORDERED: MAGNESIUM CITRATE 300 ML BOTTLE PO PRN (21:24)
[2017-12-14] MEDS ORDERED: LOPERAMIDE HCL 2 MG CAPSULE PO PRN (21:24)
[2017-12-14] MEDS ORDERED: guaiFENesin/D-METHORPHAN HB 10 ML UNIT-DOSE CUPS PO PRN (21:24)
[2017-12-14] MEDS ORDERED: P-EPHED 60MG/TRIPROLIDI 2.5MG TABLET PO PRN (21:24)
[2017-12-14] MEDS ORDERED: NICOTINE POLACRILEX 2 MG GUM BUC PRN (21:24)
[2017-12-14] MEDS ORDERED: ACETAMINOPHEN 325 MG TABLET (FP) PO PRN (21:24)
[2017-12-14] MEDS ORDERED: ALBUTEROL SO4 18 GM HFA INHALER IH PRN (21:34)
[2017-12-14] MEDS ORDERED: ALBUTEROL SO4 2.5/IPRATROPIUM 0.5 INH SOL 3 ML VIAL.NEB. NEB PRN (21:35)
[2017-12-14] MEDS ORDERED: diazePAM 5 MG TABLET PO ONE (21:45)
[2017-12-14] MEDS ORDERED: MELATONIN 5 MG TABLETS PO PRN (22:00)
[2017-12-14] MEDS: diazePAM 5 MG TABLET PO SCH (22:55)
[2017-12-14] MEDS: THIAMINE HCL 100 MG TABLET (FP) PO SCH (22:55)
[2017-12-15 02:09] LABS: URINE APPEARANCE CLOUDY; URINE BILIRUBIN NEGATIVE (<2.0 mg/dL); URINE BLOOD NEGATIVE (NEGATIVE); URINE COLOR AMBER; URINE GLUCOSE (UA) NEGATIVE (NEGATIVE); URINE KETONE NEGATIVE (NEGATIVE); URINE LEUK ESTERASE NEGATIVE (NEGATIVE); URINE NITRITE NEGATIVE (NEGATIVE)
[2017-12-15 02:21] LABS: URINE PROTEIN 1+ (NEGATIVE)
[2017-12-15 02:34] LABS: CALCIUM OXALATE CRYSTALS RARE /hpf (NONE SEEN); EPI CELLS FEW /HPF (FEW); URINE BACTERIA RARE /hpf (NONE SEEN); URINE MUCUS FEW
[2017-12-15] MEDS: diazePAM 5 MG TABLET PO SCH ×4 (07:26→22:05)
--- NOTE | 2017-12-15 09:33 | EKG ---
Test Reason : Blood Pressure : / mmHG Vent. Rate : 084 BPM Atrial Rate : 084 BPM P-R Int : 132 ms QRS Dur : 084 ms QT Int : 360 ms P-R-T Axes : 060 040 052 degrees QTc Int : 425 ms NORMAL SINUS RHYTHM MINIMAL VOLTAGE CRITERIA FOR LVH, MAY BE NORMAL VARIANT WHEN COMPARED WITH ECG OF 05-NOV-2017 18:09, NO SIGNIFICANT CHANGE WAS FOUND Confirmed by ROBINSON HENRY MD ([id number]) on 12/15/2017 9:33:49 AM Referred By: Confirmed By:ROBINSON HENRY MD
--- NOTE | 2017-12-15 09:51 | PN ---
[facility] CIWA - CIWA Score Nausea/Vomitin Muscle Tremors: 3 Anxiety: 3 Agitation: 3 Paroxysmal Sweats: 1-Minimal Palms Moist Orientation: 0-Oriented Tacttile Disturbances: 1-Very Mild Itch/Numbness Auditory Disturbances: 1-Very Mild Visual Disturbances: 0-None Headache: 2-Mild CIWA-Ar Total Score: 17 BHS COWS - Scale Resting Pulse: 2= [place] 101-120 Sweatin= Chills/Flushing Restless Observation: 3= Extraneous Movement Pupil Size: 1= Pupils >than Normal Bone or Joint Aches: 2= Severe Diffuse Aches Runny Nose/ Eye Tearin= Runny Nose/Eyes GI Upset > 30mins: 2= Nausea/Diarrhea Tremor Observation of Outstretched Hands: 2= Slight Tremor Visible Yawning Observation: 1= 1-2x During Session Anxiety or Irritability: 2=Irritable/Anxious Goose Flesh Skin: 0=Smooth Skin COWS Score: 18 [facility] Progress Note (SOAP) Subjective: ALERT,IRRITABLE,ANXIOUS,INTERRUPTED SLEEP,TREMOR,PAIN IN THE BODY AND BACK Objective: 12/15/17 09:50 Vital Signs Temperature 97.9 F 12/15/17 07:00 Pulse Rate 77 12/15/17 07:00 Respiratory Rate 18 12/15/17 07:00 Blood Pressure 129/78 12/15/17 07:00 O2 Sat by Pulse Oximetry (%) EKG NSR,LVH Laboratory Last Values Urine Color Che[place] 12/15/17 00:05 Urine Appearance Cloudy 12/15/17 00:05 Urine pH 5.0 (5.0-8.0) D 12/15/17 00:05 Ur Specific [place] 1.029 (1.001-1.035) 12/15/17 00:05 Urine Protein 1+ (NEGATIVE) H 12/15/17 00:05 Urine Glucose (UA) Negative (NEGATIVE) 12/15/17 00:05 Urine Ketones Negative (NEGATIVE) 12/15/17 00:05 Urine Blood Negative (NEGATIVE) 12/15/17 00:05 Urine Nitrite Negative (NEGATIVE) 12/15/17 00:05 Urine Bilirubin Negative (<2.0 mg/dL) 12/15/17 00:05 Urine Urobilinogen 2.0 mg/dL (0.2-1.0) H 12/15/17 00:05 Ur Leukocyte Esterase Negative (NEGATIVE) 12/15/17 00:05 Urine WBC (Auto) 3 /hpf (3-5) 12/15/17 00:05 Urine RBC (Auto) 8 /hpf (0-3) 12/15/17 00:05 Ur Epithelial Cells Few /HPF (FEW) 12/15/17 00:05 Calcium Oxalate Crystal Rare /hpf (NONE SEEN) 12/15/17 00:05 Urine Bacteria Rare /hpf (NONE SEEN) 12/15/17 00:05 Urine Mucus Few 12/15/17 00:05 LABS PENDING Assessment: 12/15/17 09:51 WITHDRAWAL SYMPTOM Plan: CONTINUE DETOX
[2017-12-15 09:58] LABS: HEMATOCRIT 36.5 % (32.4-45.2); HEMOGLOBIN 12.1 GM/dL (10.7-15.3); MCH 29.4 pg (25.7-33.7); MCHC 33.1 g/dl (32.0-36.0); MEAN CELL VOLUME 88.7 fl (80-96); MEAN PLT VOLUME 10.1 fl (7.5-11.1); PLATELET COUNT 190 K/MM3 (134-434); RBC 4.11 M/mm3 (3.60-5.2); RDW 14.8 % (11.6-15.6); WHITE BLOOD COUNT 4.7 K/mm3 (4.0-10.0)
[2017-12-15 09:59] LABS: CHLORIDE 110 mmol/L (98-107); SODIUM 143 mmol/L (136-145)
[2017-12-15] MEDS ORDERED: METHADONE HCL 10 MG TABLET (FOR DETOX USE ONLY) PO SCH (10:00)
[2017-12-15 10:13] LABS: ALK PHOS 39 U/L (45-117); ANION GAP 5 (8-16); BILIRUBIN,TOTAL 0.1 mg/dL (0.2-1.0); BLOOD UREA NITROGEN 15 mg/dL (7-18); CALCIUM 8.3 mg/dL (8.5-10.1); CO2 28 mmol/L (21-32); CREATININE 0.6 mg/dL (0.55-1.02); GLUCOSE,RANDOM 88 mg/dL (74-106); SGOT/AST 30 U/L (15-37); SGPT/ALT 35 U/L (12-78); TOT PROT 6.5 g/dl (6.4-8.2)
[2017-12-15] MEDS: CYCLOBENZAPRINE HCL 10 MG TABLET (FP) PO PRN (10:31)
[2017-12-15] MEDS: IBUPROFEN 400 MG TABLET (FP) PO PRN ×2 (10:31→22:07)
[2017-12-15] MEDS: cloNIDine HCL 0.1 MG TABLET PO SCH ×2 (10:32→22:05)
[2017-12-15] MEDS: diazePAM 5 MG TABLET PO PRN ×2 (10:32→19:42)
[2017-12-15] MEDS: PRENATAL VITAMINS W/ FOLIC ACID TABLET (FP) PO SCH (10:33)
[2017-12-15] MEDS: NICOTINE 14 MG/24 HOURS TOPICAL PATCH TD SCH (10:33)
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
[2017-12-15] MEDS: ARIPiprazole 15 MG TABLET PO SCH (11:49)
[2017-12-15] MEDS: PARoxetine HCL 20 MG TABLET (FP) PO SCH (11:49)
[2017-12-15] MEDS: QUEtiapine FUMARATE 100 MG TABLET (FP) PO SCH (22:05)
[2017-12-15] MEDS: THIAMINE HCL 100 MG TABLET (FP) PO SCH (22:07)
[2017-12-16] MEDS: PRENATAL VITAMINS W/ FOLIC ACID TABLET (FP) PO SCH (10:21)
[2017-12-16] MEDS: IBUPROFEN 400 MG TABLET (FP) PO PRN ×2 (10:21→16:37)
[2017-12-16] MEDS: NICOTINE 14 MG/24 HOURS TOPICAL PATCH TD SCH (10:22)
[2017-12-16] MEDS: METHADONE HCL 5 MG TABLET (FOR DETOX USE ONLY) PO SCH (10:22)
[2017-12-16] MEDS: cloNIDine HCL 0.1 MG TABLET PO SCH ×2 (10:22→22:11)
[2017-12-16] MEDS: ARIPiprazole 15 MG TABLET PO SCH (10:22)
[2017-12-16] MEDS: PARoxetine HCL 20 MG TABLET (FP) PO SCH (10:22)
[2017-12-16] MEDS: diazePAM 5 MG TABLET PO SCH ×2 (10:22→22:11)
[2017-12-16] MEDS: CYCLOBENZAPRINE HCL 10 MG TABLET (FP) PO PRN ×2 (10:22→16:37)
--- NOTE | 2017-12-16 11:26 | PN ---
S CIWA - CIWA Score Nausea/Vomitin Muscle Tremors: 3 Anxiety: 3 Agitation: 2 Paroxysmal Sweats: 1-Minimal Palms Moist Orientation: 0-Oriented Tacttile Disturbances: 1-Very Mild Itch/Numbness Auditory Disturbances: 1-Very Mild Visual Disturbances: 0-None Headache: 2-Mild CIWA-Ar Total Score: 16 BHS COWS - Scale Resting Pulse: 0= MO 80 or Below Sweatin= Chills/Flushing Restless Observation: 3= Extraneous Movement Pupil Size: 1= Pupils >than Normal Bone or Joint Aches: 2= Severe Diffuse Aches Runny Nose/ Eye Tearin= Nasal Congestion GI Upset > 30mins: 2= Nausea/Diarrhea Tremor Observation of Outstretched Hands: 2= Slight Tremor Visible Yawning Observation: 1= 1-2x During Session Anxiety or Irritability: 2=Irritable/Anxious Goose Flesh Skin: 0=Smooth Skin COWS Score: 15 BHS Progress Note (SOAP) Subjective: ALERT,IRRITABLE,ANXIOUS,INTERRUPTED SLEEP,TREMOR,PAIN IN THE BODY AND BACK Objective: 12/16/17 11:23 Vital Signs Temperature 97.7 F 12/16/17 10:38 Pulse Rate 78 12/16/17 10:38 Respiratory Rate 20 12/16/17 10:38 Blood Pressure 136/83 12/16/17 10:38 O2 Sat by Pulse Oximetry (%) 12/16/17 11:27 Laboratory Last Values WBC 4.7 K/mm3 (4.0-10.0) 12/15/17 08:00 RBC 4.11 M/mm3 (3.60-5.2) 12/15/17 08:00 Hgb 12.1 GM/dL (10.7-15.3) 12/15/17 08:00 Hct 36.5 % (32.4-45.2) 12/15/17 08:00 MCV 88.7 fl (80-96) 12/15/17 08:00 MCH 29.4 pg (25.7-33.7) 12/15/17 08:00 MCHC 33.1 g/dl (32.0-36.0) 12/15/17 08:00 RDW 14.8 % (11.6-15.6) 12/15/17 08:00 Plt Count 190 K/MM3 (134-434) 12/15/17 08:00 MPV 10.1 fl (7.5-11.1) 12/15/17 08:00 Sodium 143 mmol/L (136-145) 12/15/17 08:00 Potassium 4.0 mmol/L (3.5-5.1) 12/15/17 08:00 Chloride 110 mmol/L (98-107) H 12/15/17 08:00 Carbon Dioxide 28 mmol/L (21-32) 12/15/17 08:00 Anion Gap 5 (8-16) L 12/15/17 08:00 BUN 15 mg/dL (7-18) 12/15/17 08:00 Creatinine 0.6 mg/dL (0.55-1.02) 12/15/17 08:00 Creat Clearance w eGFR > 60 (>60) 12/15/17 08:00 Random Glucose 88 mg/dL (74-106) 12/15/17 08:00 Calcium 8.3 mg/dL (8.5-10.1) L 12/15/17 08:00 Total Bilirubin 0.1 mg/dL (0.2-1.0) L D 12/15/17 08:00 AST 30 U/L (15-37) 12/15/17 08:00 ALT 35 U/L (12-78) 12/15/17 08:00 Alkaline Phosphatase 39 U/L (45-117) L 12/15/17 08:00 Total Protein 6.5 g/dl (6.4-8.2) 12/15/17 08:00 Albumin 3.0 g/dl (3.4-5.0) L 12/15/17 08:00 Urine Color [place] 12/15/17 00:05 Urine Appearance Cloudy 12/15/17 00:05 Urine pH 5.0 (5.0-8.0) D 12/15/17 00:05 Ur Specific [place] 1.029 (1.001-1.035) 12/15/17 00:05 Urine Protein 1+ (NEGATIVE) H 12/15/17 00:05 Urine Glucose (UA) Negative (NEGATIVE) 12/15/17 00:05 Urine Ketones Negative (NEGATIVE) 12/15/17 00:05 Urine Blood Negative (NEGATIVE) 12/15/17 00:05 Urine Nitrite Negative (NEGATIVE) 12/15/17 00:05 Urine Bilirubin Negative (<2.0 mg/dL) 12/15/17 00:05 Urine Urobilinogen 2.0 mg/dL (0.2-1.0) H 12/15/17 00:05 Ur Leukocyte Esterase Negative (NEGATIVE) 12/15/17 00:05 Urine WBC (Auto) 3 /hpf (3-5) 12/15/17 00:05 Urine RBC (Auto) 8 /hpf (0-3) 12/15/17 00:05 Ur Epithelial Cells Few /HPF (FEW) 12/15/17 00:05 Calcium Oxalate Crystal Rare /hpf (NONE SEEN) 12/15/17 00:05 Urine Bacteria Rare /hpf (NONE SEEN) 12/15/17 00:05 Urine Mucus Few 12/15/17 00:05 RPR Titer Nonreactive (NONREACTIVE) 12/15/17 08:00 HIV 1&2 Antibody Screen Negative 12/15/17 08:00 HIV P24 Antigen Negative 12/15/17 08:00 Assessment: 12/16/17 11:27 WITHDRAWAL SYMPTOM Plan: CONTINUE DETOX
[2017-12-16] MEDS: diazePAM 5 MG TABLET PO PRN (13:17)
[2017-12-16] MEDS: QUEtiapine FUMARATE 100 MG TABLET (FP) PO SCH (22:11)
[2017-12-16] MEDS: THIAMINE HCL 100 MG TABLET (FP) PO SCH (22:11)
[2017-12-17] MEDS: METHADONE HCL 5 MG TABLET (FOR DETOX USE ONLY) PO SCH (10:13)
[2017-12-17] MEDS: ARIPiprazole 15 MG TABLET PO SCH (10:13)
[2017-12-17] MEDS: diazePAM 5 MG TABLET PO SCH ×2 (10:14→22:06)
[2017-12-17] MEDS: PARoxetine HCL 20 MG TABLET (FP) PO SCH (10:14)
[2017-12-17] MEDS: IBUPROFEN 400 MG TABLET (FP) PO PRN ×2 (10:14→19:16)
[2017-12-17] MEDS: CYCLOBENZAPRINE HCL 10 MG TABLET (FP) PO PRN (10:14)
[2017-12-17] MEDS: cloNIDine HCL 0.1 MG TABLET PO SCH ×2 (10:14→22:06)
[2017-12-17] MEDS: PRENATAL VITAMINS W/ FOLIC ACID TABLET (FP) PO SCH (10:14)
[2017-12-17] MEDS: NICOTINE 14 MG/24 HOURS TOPICAL PATCH TD SCH (10:15)
--- NOTE | 2017-12-17 13:24 | PN ---
BHS Progress Note (SOAP) Subjective: muscle aches sweat joint pain tremor stuffy nose gi distress anxiety restlessness Objective: 12/17/17 13:22 Vital Signs Temperature 97.2 F L 12/17/17 12:01 Pulse Rate 71 12/17/17 12:01 Respiratory Rate 18 12/17/17 12:01 Blood Pressure 132/83 12/17/17 12:01 O2 Sat by Pulse Oximetry (%) Laboratory Last Values WBC 4.7 K/mm3 (4.0-10.0) 12/15/17 08:00 RBC 4.11 M/mm3 (3.60-5.2) 12/15/17 08:00 Hgb 12.1 GM/dL (10.7-15.3) 12/15/17 08:00 Hct 36.5 % (32.4-45.2) 12/15/17 08:00 MCV 88.7 fl (80-96) 12/15/17 08:00 MCH 29.4 pg (25.7-33.7) 12/15/17 08:00 MCHC 33.1 g/dl (32.0-36.0) 12/15/17 08:00 RDW 14.8 % (11.6-15.6) 12/15/17 08:00 Plt Count 190 K/MM3 (134-434) 12/15/17 08:00 MPV 10.1 fl (7.5-11.1) 12/15/17 08:00 Sodium 143 mmol/L (136-145) 12/15/17 08:00 Potassium 4.0 mmol/L (3.5-5.1) 12/15/17 08:00 Chloride 110 mmol/L (98-107) H 12/15/17 08:00 Carbon Dioxide 28 mmol/L (21-32) 12/15/17 08:00 Anion Gap 5 (8-16) L 12/15/17 08:00 BUN 15 mg/dL (7-18) 12/15/17 08:00 Creatinine 0.6 mg/dL (0.55-1.02) 12/15/17 08:00 Creat Clearance w eGFR > 60 (>60) 12/15/17 08:00 Random Glucose 88 mg/dL (74-106) 12/15/17 08:00 Calcium 8.3 mg/dL (8.5-10.1) L 12/15/17 08:00 Total Bilirubin 0.1 mg/dL (0.2-1.0) L D 12/15/17 08:00 AST 30 U/L (15-37) 12/15/17 08:00 ALT 35 U/L (12-78) 12/15/17 08:00 Alkaline Phosphatase 39 U/L (45-117) L 12/15/17 08:00 Total Protein 6.5 g/dl (6.4-8.2) 12/15/17 08:00 Albumin 3.0 g/dl (3.4-5.0) L 12/15/17 08:00 Urine Color [place] 12/15/17 00:05 Urine Appearance Cloudy 12/15/17 00:05 Urine pH 5.0 (5.0-8.0) D 12/15/17 00:05 Ur Specific [place] 1.029 (1.001-1.035) 12/15/17 00:05 Urine Protein 1+ (NEGATIVE) H 12/15/17 00:05 Urine Glucose (UA) Negative (NEGATIVE) 12/15/17 00:05 Urine Ketones Negative (NEGATIVE) 12/15/17 00:05 Urine Blood Negative (NEGATIVE) 12/15/17 00:05 Urine Nitrite Negative (NEGATIVE) 12/15/17 00:05 Urine Bilirubin Negative (<2.0 mg/dL) 12/15/17 00:05 Urine Urobilinogen 2.0 mg/dL (0.2-1.0) H 12/15/17 00:05 Ur Leukocyte Esterase Negative (NEGATIVE) 12/15/17 00:05 Urine WBC (Auto) 3 /hpf (3-5) 12/15/17 00:05 Urine RBC (Auto) 8 /hpf (0-3) 12/15/17 00:05 Ur Epithelial Cells Few /HPF (FEW) 12/15/17 00:05 Calcium Oxalate Crystal Rare /hpf (NONE SEEN) 12/15/17 00:05 Urine Bacteria Rare /hpf (NONE SEEN) 12/15/17 00:05 Urine Mucus Few 12/15/17 00:05 RPR Titer Nonreactive (NONREACTIVE) 12/15/17 08:00 HIV 1&2 Antibody Screen Negative 12/15/17 08:00 HIV P24 Antigen Negative 12/15/17 08:00 lab noted Assessment: 12/17/17 13:22 Vital Signs Temperature 97.2 F L 12/17/17 12:01 Pulse Rate 71 12/17/17 12:01 Respiratory Rate 18 12/17/17 12:01 Blood Pressure 132/83 12/17/17 12:01 O2 Sat by Pulse Oximetry (%) Laboratory Last Values WBC 4.7 K/mm3 (4.0-10.0) 12/15/17 08:00 RBC 4.11 M/mm3 (3.60-5.2) 12/15/17 08:00 Hgb 12.1 GM/dL (10.7-15.3) 12/15/17 08:00 Hct 36.5 % (32.4-45.2) 12/15/17 08:00 MCV 88.7 fl (80-96) 12/15/17 08:00 MCH 29.4 pg (25.7-33.7) 12/15/17 08:00 MCHC 33.1 g/dl (32.0-36.0) 12/15/17 08:00 RDW 14.8 % (11.6-15.6) 12/15/17 08:00 Plt Count 190 K/MM3 (134-434) 12/15/17 08:00 MPV 10.1 fl (7.5-11.1) 12/15/17 08:00 Sodium 143 mmol/L (136-145) 12/15/17 08:00 Potassium 4.0 mmol/L (3.5-5.1) 12/15/17 08:00 Chloride 110 mmol/L (98-107) H 12/15/17 08:00 Carbon Dioxide 28 mmol/L (21-32) 12/15/17 08:00 Anion Gap 5 (8-16) L 12/15/17 08:00 BUN 15 mg/dL (7-18) 12/15/17 08:00 Creatinine 0.6 mg/dL (0.55-1.02) 12/15/17 08:00 Creat Clearance w eGFR > 60 (>60) 12/15/17 08:00 Random Glucose 88 mg/dL (74-106) 12/15/17 08:00 Calcium 8.3 mg/dL (8.5-10.1) L 12/15/17 08:00 Total Bilirubin 0.1 mg/dL (0.2-1.0) L D 12/15/17 08:00 AST 30 U/L (15-37) 12/15/17 08:00 ALT 35 U/L (12-78) 12/15/17 08:00 Alkaline Phosphatase 39 U/L (45-117) L 12/15/17 08:00 Total Protein 6.5 g/dl (6.4-8.2) 12/15/17 08:00 Albumin 3.0 g/dl (3.4-5.0) L 12/15/17 08:00 Urine Color [place] 12/15/17 00:05 Urine Appearance Cloudy 12/15/17 00:05 Urine pH 5.0 (5.0-8.0) D 12/15/17 00:05 Ur Specific [place] 1.029 (1.001-1.035) 12/15/17 00:05 Urine Protein 1+ (NEGATIVE) H 12/15/17 00:05 Urine Glucose (UA) Negative (NEGATIVE) 12/15/17 00:05 Urine Ketones Negative (NEGATIVE) 12/15/17 00:05 Urine Blood Negative (NEGATIVE) 12/15/17 00:05 Urine Nitrite Negative (NEGATIVE) 12/15/17 00:05 Urine Bilirubin Negative (<2.0 mg/dL) 12/15/17 00:05 Urine Urobilinogen 2.0 mg/dL (0.2-1.0) H 12/15/17 00:05 Ur Leukocyte Esterase Negative (NEGATIVE) 12/15/17 00:05 Urine WBC (Auto) 3 /hpf (3-5) 12/15/17 00:05 Urine RBC (Auto) 8 /hpf (0-3) 12/15/17 00:05 Ur Epithelial Cells Few /HPF (FEW) 12/15/17 00:05 Calcium Oxalate Crystal Rare /hpf (NONE SEEN) 12/15/17 00:05 Urine Bacteria Rare /hpf (NONE SEEN) 12/15/17 00:05 Urine Mucus Few 12/15/17 00:05 RPR Titer Nonreactive (NONREACTIVE) 12/15/17 08:00 HIV 1&2 Antibody Screen Negative 12/15/17 08:00 HIV P24 Antigen Negative 12/15/17 08:00 lab noted increase oral fluid Plan: continue detox
[2017-12-17] MEDS: diazePAM 5 MG TABLET PO PRN ×2 (13:41→19:15)
[2017-12-17] MEDS: THIAMINE HCL 100 MG TABLET (FP) PO SCH (22:06)
[2017-12-17] MEDS: QUEtiapine FUMARATE 100 MG TABLET (FP) PO SCH (22:06)
[2017-12-18] MEDS: CYCLOBENZAPRINE HCL 10 MG TABLET (FP) PO PRN ×2 (05:41→22:36)
--- NOTE | 2017-12-18 09:27 | PN ---
S Progress Note (SOAP) Subjective: ALERT,INTERRUPTED SLEEP Objective: 12/18/17 09:26 Vital Signs Temperature 97.6 F 12/18/17 06:18 Pulse Rate 85 12/18/17 06:18 Respiratory Rate 18 12/18/17 06:18 Blood Pressure 126/77 12/18/17 06:18 O2 Sat by Pulse Oximetry (%) Assessment: 12/18/17 09:26 WITHDRAWAL SYMPTOM Plan: CONTINUE DETOX,DISCHARGE IN AM
[2017-12-18] MEDS ORDERED: diazePAM 5 MG TABLET PO SCH (10:00)
[2017-12-18] MEDS ORDERED: METHADONE HCL 10 MG TABLET (FOR DETOX USE ONLY) PO SCH (10:00)
[2017-12-18] MEDS: PARoxetine HCL 20 MG TABLET (FP) PO SCH (10:09)
[2017-12-18] MEDS: PRENATAL VITAMINS W/ FOLIC ACID TABLET (FP) PO SCH (10:09)
[2017-12-18] MEDS: ARIPiprazole 15 MG TABLET PO SCH (10:09)
[2017-12-18] MEDS: cloNIDine HCL 0.1 MG TABLET PO SCH ×2 (10:10→22:36)
[2017-12-18] MEDS: NICOTINE 14 MG/24 HOURS TOPICAL PATCH TD SCH (10:10)
[2017-12-18] MEDS: THIAMINE HCL 100 MG TABLET (FP) PO SCH (22:35)
[2017-12-18] MEDS: QUEtiapine FUMARATE 100 MG TABLET (FP) PO SCH (22:36)
[2017-12-19] MEDS ORDERED: METHADONE HCL 5 MG TABLET (FOR DETOX USE ONLY) PO SCH (06:00)
[2017-12-19 06:43] VITALS: BP 122/80; PULSE 79; TEMP 97.7
[2017-12-19] MEDS: PARoxetine HCL 20 MG TABLET (FP) PO SCH (09:55)
[2017-12-19] MEDS: ARIPiprazole 15 MG TABLET PO SCH (09:55)
[2017-12-19] MEDS: PRENATAL VITAMINS W/ FOLIC ACID TABLET (FP) PO SCH (09:56)
--- NOTE | 2017-12-19 10:38 | DS ---
[facility] Detox Discharge Summary Admission Date: 12/14/17 Discharge Date: 12/19/17 - History Present History: Alcohol Dependence, Opioid Dependence Additional Comments: 47 years old female admitted on 12/14/17 for alcohol and opioid detox completed detox regimen tolerated well denies alcohol withdrawal denies opioid withdrawal sx patient is alert oriented x 3 no acute distress [facility] - Physical Exam Results Vital Signs: Vital Signs Temperature 97.7 F 12/19/17 06:00 Pulse Rate 79 12/19/17 06:00 Respiratory Rate 18 12/19/17 06:00 Blood Pressure 122/80 12/19/17 06:00 O2 Sat by Pulse Oximetry (%) Pertinent Admission Physical Exam Findings: withdrawal sx Vital Signs Temperature 97.7 F 12/19/17 06:00 Pulse Rate 79 12/19/17 06:00 Respiratory Rate 18 12/19/17 06:00 Blood Pressure 122/80 12/19/17 06:00 O2 Sat by Pulse Oximetry (%) Laboratory Last Values WBC 4.7 K/mm3 (4.0-10.0) 12/15/17 08:00 RBC 4.11 M/mm3 (3.60-5.2) 12/15/17 08:00 Hgb 12.1 GM/dL (10.7-15.3) 12/15/17 08:00 Hct 36.5 % (32.4-45.2) 12/15/17 08:00 MCV 88.7 fl (80-96) 12/15/17 08:00 MCH 29.4 pg (25.7-33.7) 12/15/17 08:00 MCHC 33.1 g/dl (32.0-36.0) 12/15/17 08:00 RDW 14.8 % (11.6-15.6) 12/15/17 08:00 Plt Count 190 K/MM3 (134-434) 12/15/17 08:00 MPV 10.1 fl (7.5-11.1) 12/15/17 08:00 Sodium 143 mmol/L (136-145) 12/15/17 08:00 Potassium 4.0 mmol/L (3.5-5.1) 12/15/17 08:00 Chloride 110 mmol/L (98-107) H 12/15/17 08:00 Carbon Dioxide 28 mmol/L (21-32) 12/15/17 08:00 Anion Gap 5 (8-16) L 12/15/17 08:00 BUN 15 mg/dL (7-18) 12/15/17 08:00 Creatinine 0.6 mg/dL (0.55-1.02) 12/15/17 08:00 Creat Clearance w eGFR > 60 (>60) 12/15/17 08:00 Random Glucose 88 mg/dL (74-106) 12/15/17 08:00 Calcium 8.3 mg/dL (8.5-10.1) L 12/15/17 08:00 Total Bilirubin 0.1 mg/dL (0.2-1.0) L D 12/15/17 08:00 AST 30 U/L (15-37) 12/15/17 08:00 ALT 35 U/L (12-78) 12/15/17 08:00 Alkaline Phosphatase 39 U/L (45-117) L 12/15/17 08:00 Total Protein 6.5 g/dl (6.4-8.2) 12/15/17 08:00 Albumin 3.0 g/dl (3.4-5.0) L 12/15/17 08:00 Urine Color [place] 12/15/17 00:05 Urine Appearance Cloudy 12/15/17 00:05 Urine pH 5.0 (5.0-8.0) D 12/15/17 00:05 Ur Specific [place] 1.029 (1.001-1.035) 12/15/17 00:05 Urine Protein 1+ (NEGATIVE) H 12/15/17 00:05 Urine Glucose (UA) Negative (NEGATIVE) 12/15/17 00:05 Urine Ketones Negative (NEGATIVE) 12/15/17 00:05 Urine Blood Negative (NEGATIVE) 12/15/17 00:05 Urine Nitrite Negative (NEGATIVE) 12/15/17 00:05 Urine Bilirubin Negative (<2.0 mg/dL) 12/15/17 00:05 Urine Urobilinogen 2.0 mg/dL (0.2-1.0) H 12/15/17 00:05 Ur Leukocyte Esterase Negative (NEGATIVE) 12/15/17 00:05 Urine WBC (Auto) 3 /hpf (3-5) 12/15/17 00:05 Urine RBC (Auto) 8 /hpf (0-3) 12/15/17 00:05 Ur Epithelial Cells Few /HPF (FEW) 12/15/17 00:05 Calcium Oxalate Crystal Rare /hpf (NONE SEEN) 12/15/17 00:05 Urine Bacteria Rare /hpf (NONE SEEN) 12/15/17 00:05 Urine Mucus Few 12/15/17 00:05 RPR Titer Nonreactive (NONREACTIVE) 12/15/17 08:00 HIV 1&2 Antibody Screen Negative 12/15/17 08:00 HIV P24 Antigen Negative 12/15/17 08:00 lab noted - Treatment Hospital Course: Detox Protocol Followed, Detoxed Safely, Responded well, Discharged Condition Good, Rehab Referral Accepted Patient has Accepted a Rehab Referral to: [facility] - Medication Discharge Medications: Ambulatory Orders Paroxetine HCl [Paxil] 20 mg PO DAILY 11/05/17 Quetiapine Fumarate [Seroquel] 100 mg PO HS 11/05/17 Albuterol Sulfate Inhaler - [Ventolin HFA Inhaler -] 2 puff IH PRN PRN #1 inhaler 12/18/17 Aripiprazole 15 mg PO DAILY #1 tablet 12/19/17 Gabapentin 300 mg PO BID #60 capsule 12/19/17 - Diagnosis (1) Opioid dependence with withdrawal Current Visit: Yes Status: Acute (2) Alcohol dependence with uncomplicated withdrawal Current Visit: Yes Status: Acute (3) Asthma Current Visit: Yes Status: Chronic Qualifiers: Asthma severity: mild Asthma persistence: intermittent Asthma complication type: unspecified Qualified Code(s): J45.20 - Mild intermittent asthma, uncomplicated (4) Bipolar disorder Current Visit: Yes Status: Suspected Qualifiers: Active/Remission status: in partial remission Most recent bipolar episode type: mixed Qualified Code(s): F31.77 - Bipolar disorder, in partial remission , most recent episode mixed (5) Hepatitis C Current Visit: Yes Status: Resolved Qualifiers: Viral hepatitis chronicity: unspecified Hepatic coma status: without hepatic coma Qualified Code(s): B19.20 - Unspecified viral hepatitis C without hepatic coma (6) Nicotine dependence Current Visit: Yes Status: Acute Qualifiers: Nicotine product type: cigarettes Substance use status: in withdrawal Qualified Code(s): F17.213 - Nicotine dependence, cigarettes, with withdrawal (7) 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
== END 2017-12-19 10:14 | disposition home or self-care (01) | DRG 773 ==
LOC: YASAS 11:41 → Y6N 21:33
PROVIDERS: ADMIT Internal Medicine; ATTEND Internal Medicine
PROC: HZ2ZZZZ Detoxification Services for Substance Abuse Treatment (ICD-10-PCS; principal; 2017-12-14)
DX: F11.23 Opioid dependence with withdrawal (principal); F13.20 Sedative, hypnotic or anxiolytic dependence, uncomplicated; F10.230 Alcohol dependence with withdrawal, uncomplicated; F17.210 Nicotine dependence, cigarettes, uncomplicated; F31.77 Bipolar disorder, in partial remission, most recent episode mixed; G47.00 Insomnia, unspecified; J45.20 Mild intermittent asthma, uncomplicated; R76.11 Nonspecific reaction to tuberculin skin test without active tuberculosis
CPT/HCPCS: 36415; 80053; 81003; 81015; 85027; 86593; 87389; 93005; 93010; J0735

== ENCOUNTER 2017-12-14 15:17 | Emergency (ER) | payer BC ==
[2017-12-14 15:58] VITALS: BP 90/59; PULSE 70; TEMP 97.5; BMI 28.3
--- NOTE | 2017-12-14 16:04 | PDOC ---
History of Present Illness - General Chief Complaint: Back Pain Stated Complaint: BACK PAIN Time Seen by Provider: 12/14/17 15:32 History Source: Patient Exam Limitations: No Limitations - History of Present Illness Initial Comments: 12/14/17 16:07 Patient is a 47-year-old female past medical history alcohol abuse, heroin abuse , who presents the emergency department today after a mechanical trip and fall. Patient states she was walking outside of rehabilitation to get some soup when she slipped and fell. She states that she landed on her butt. She did not lose consciousness or hit her head. She admits to back pain. Last alcoho/heroine use was yesterday. Currently denies fevers, chills, shortness of breath, difficulty breathing, lightheadedness, dizziness, weakness, numbness and tingling in the feet. Past History - Travel Traveled outside of the country in the last 30 days: No Close contact w/someone who was outside of country & ill: No - Past Medical History Allergies/Adverse Reactions: Allergies Allergy/AdvReac Type Severity Reaction Status Date / Time No Known Allergies Allergy Verified 12/14/17 15:58 Home Medications: Ambulatory Orders Aripiprazole 15 mg PO DAILY 11/05/17 Paroxetine HCl [Paxil] 20 mg PO DAILY 11/05/17 Quetiapine Fumarate [Seroquel] 100 mg PO HS 11/05/17 Albuterol Sulfate Inhaler - [Ventolin HFA Inhaler -] 1 puff IH PRN PRN #1 inhaler 11/09/17 Gabapentin 300 mg PO BID #60 capsule 11/09/17 Anemia: No Asthma: No Cancer: No Cardiac Disorders: No CVA: No COPD: No CHF: No Dementia: No Diabetes: No GI Disorders: No Disorders: No HTN: No Hypercholesterolemia: No Kidney Stones: No Liver Disease: No Seizures: No Thyroid Disease: No - Surgical History Abdominal Surgery: No Appendectomy: No Cardiac Surgery: No Cholecystectomy: No Lung Surgery: No Neurologic Surgery: No Orthopedic Surgery: Yes (DRAINAGE OF ABSCESS OF LEFT UPPER ARM IN 2017) - Reproductive History PID: No (no more since 1yr ago) - Suicide/Smoking/Psychosocial Hx Smoking History: Unknown if ever smoked Have you smoked in the past 12 months: Yes Number of Cigarettes Smoked Daily: 10 Information on smoking cessation initiated: No 'Breaking Loose' booklet given: 11/05/17 Hx Alcohol Use: No Drug/Substance Use Hx: No Substance Use Type: Alcohol, Cocaine, Heroin, Tranquilizers Hx Substance Use Treatment: Yes (IN 2011 ) Review of Systems - Review of Systems Able to Perform ROS?: Yes Comments:: 12/14/17 18:03 CONSTITUTIONAL: Absent: fever, chills, diaphoresis, generalized weakness, malaise, loss of appetite HEENT: Absent: rhinorrhea, nasal congestion, throat pain, throat swelling, difficulty swallowing, mouth swelling, ear pain, eye pain, visual Changes CARDIOVASCULAR: Absent: chest pain, loss of consciousness, palpitations, irregular heart rate, peripheral edema RESPIRATORY: Absent: cough, shortness of breath, dyspnea with exertion, orthopnea, wheezing, stridor, hemoptysis GASTROINTESTINAL: Absent: abdominal pain, abdominal distension, nausea, vomiting, diarrhea, constipation, melena, hematochezia GENITOURINARY: Absent: dysuria, frequency, urgency, hesitancy, hematuria, flank pain, genital pain MUSCULOSKELETAL: Present: tenderness to lower back Absent: myalgia, arthralgia, joint swelling SKIN: Absent: rash, itching, pallor HEMATOLOGIC/IMMUNOLOGIC: Absent: easy bleeding, easy bruising, lymphadenopathy, frequent infections ENDOCRINE: Absent: unexplained weight gain, unexplained weight loss, heat intolerance, cold intolerance NEUROLOGIC: Absent: headache, focal weakness or paresthesias, dizziness, unsteady gait, seizure, mental status changes, bladder or bowel incontinence PSYCHIATRIC: Absent: anxiety, depression, suicidal or homicidal ideation, hallucinations. Is the patient limited Belarusian proficient: No *Physical Exam - Vital Signs Last Vital Signs Temp Pulse Resp BP Pulse Ox 97.5 F L 70 16 90/59 99 12/14/17 15:49 12/14/17 15:49 12/14/17 15:49 12/14/17 15:49 12/14/17 15:49 - Physical Exam Comments: 12/14/17 18:10 GENERAL: Well developed, well nourished. Awake and alert. No acute distress. HEENT: Normocephalic, atraumatic. No step offs or crepitus felt. No obregon sign/racoon sign. No obvious signs of head trauma. PERRLA, EOMI. No conjunctival pallor. Sclera are non-icteric. Moist mucous membranes. Oropharynx is clear. NECK: Supple. Full ROM. No JVD. Carotid pulses 2+ and symmetric, without bruits. No thyromegaly. No lymphadenopathy. CARDIOVASCULAR: Regular rate and rhythm. No murmurs, rubs, or gallops. Distal pulses are 2+ and symmetric. PULMONARY: No evidence of respiratory distress. Lungs clear to auscultation bilaterally. No wheezing, rales or rhonchi. ABDOMINAL: Soft. Non-tender. Non-distended. No rebound or guarding. No organomegaly. Normoactive bowel sounds. MUSCULOSKELETAL TTP of the lower back paraspinous muscles b/l. No midline tenderness. Normal range of motion at all joints. No bony deformities or tenderness. No CVA tenderness. EXTREMITIES: No cyanosis. No clubbing. No edema. No calf tenderness. SKIN: Warm and dry. Normal capillary refill. No rashes. No jaundice. NEUROLOGICAL: Alert, awake, appropriate. Cranial nerves 2-12 intact. No deficits to light touch and temperature in face, upper extremities and lower extremities. No motor deficits in the in face, upper extremities and lower extremities. Normoreflexic in the upper and lower extremities. Normal speech. Toes are down- going bilaterally. Gait is normal without ataxia. PSYCHIATRIC: Cooperative. Good eye contact. Appropriate mood and affect. Medical Decision Making - Medical Decision Making 12/14/17 18:14 Patient is a 47-year-old female past medical history of alcoholism, heroin abuse , because of the emergencystatus post mechanical slip and fall. Patient landed on her backside. Patient did not hit her head did not lose consciousness. Story is consistent throughout entire ER stay. There is no signs of trauma or bruising on exam. [place] head ct criterea a 0. Will defer CT of the head at this time. Impression pending lower back x-rays. Pt received two percocets with relief. If normal patient may return to detox. There is a bed waiting for her. Sign out given to KAJAL Cruz. *DC/Admit/Observation/Transfer Diagnosis at time of Disposition: Alcohol dependence with uncomplicated withdrawal, Opioid dependence with withdrawal, Heroin withdrawal - Discharge Dispostion Condition at time of disposition: Stable Admit: No - Referrals - Patient Instructions Printed Discharge Instructions: DI for Alcohol Abuse Additional Instructions: Return to [facility] at this time. They have a bed for you. Your x-rays were normal. Please take Motrin or Tylenol as needed for your pain. Follow-up with her primary care doctor. Return to the emergency Department you have nausea, vomiting, headaches, fevers , worsening back pain, numbness and tingling, or loss of bladder or bowel function, or any new or worsening symptoms. - Post Discharge Activity
[2017-12-14] MEDS ORDERED: IBUPROFEN 400 MG TABLET (FP) PO ONE (16:49)
--- NOTE | 2017-12-14 19:34 | PDOC ---
*Physical Exam - Vital Signs Last Vital Signs Temp Pulse Resp BP Pulse Ox 97.5 F L 70 16 90/59 99 12/14/17 15:49 12/14/17 15:49 12/14/17 15:49 12/14/17 15:49 12/14/17 15:49 ED Treatment Course - ADDITIONAL ORDERS Additional order review: Laboratory Results 12/14/17 16:45 Urine HCG, Qual Negative - Medications Given in the ED: ED Medications Discontinued Medications Generic Name Dose Route Start Last Admin Trade Name Karel PRN Reason Stop Dose Admin Ibuprofen 800 mg 12/14/17 16:49 12/14/17 17:36 Motrin - PO 12/14/17 16:50 Not Given ONCE ONE Oxycodone/Acetaminophen 1 combo 12/14/17 16:04 12/14/17 16:27 Percocet 5/325 - PO 12/14/17 16:05 1 combo ONCE ONE Administration Oxycodone/Acetaminophen 1 combo 12/14/17 16:49 12/14/17 16:55 Percocet 5/325 - PO 12/14/17 16:50 1 combo ONCE ONE Administration Medical Decision Making - Medical Decision Making 12/14/17 19:33 official read pending on lumbar spine. good alignment noted. scoliosis? will send patient back to [facility]. 12/14/17 19:45 I spoke to Felicitas DOOLEY in [facility]. advised to send to admissions area via security. patient is cleared for discharge, requesting snickers for food and requesting to go to detox at this time. *DC/Admit/Observation/Transfer Diagnosis at time of Disposition: Alcohol dependence with uncomplicated withdrawal, Opioid dependence with withdrawal, Heroin withdrawal - Discharge Dispostion Condition at time of disposition: Stable - Referrals - Patient Instructions Printed Discharge Instructions: DI for Alcohol Abuse Additional Instructions: Return to [facility] at this time. They have a bed for you. Your x-rays were normal. Please take Motrin or Tylenol as needed for your pain. Follow-up with her primary care doctor. Return to the emergency Department you have nausea, vomiting, headaches, fevers , worsening back pain, numbness and tingling, or loss of bladder or bowel function, or any new or worsening symptoms. - Post Discharge Activity
== END 2017-12-14 20:04 | disposition home or self-care (01) ==
LOC: JER 15:17
DX: M54.5 Low back pain (principal); W01.198A Fall on same level from slipping, tripping and stumbling with subsequent striking against other object, initial encounter; Y93.89 Activity, other specified; Y92.89 Other specified places as the place of occurrence of the external cause; Y99.8 Other external cause status; F11.23 Opioid dependence with withdrawal; F10.230 Alcohol dependence with withdrawal, uncomplicated; F17.210 Nicotine dependence, cigarettes, uncomplicated
CPT/HCPCS: 72100-TC-FY; 84703; 99282-25